=== PATIENT | female | born 1960 | race Two or more races ===

== ENCOUNTER 2019-06-17 14:55 | Emergency (ER) | payer SELFPAY ==
[~2019-06-17] VITALS: Ht 165.1 cm; Wt 70.3 kg
[2019-06-17] MEDS ORDERED: ACETAMINOPHEN 500 MG TAB PO ONE (16:00)
[2019-06-17 16:16] VITALS: BP 137/84
== END 2019-06-17 20:10 | disposition left against medical advice (07) ==
LOC: ER 14:55
DX: J20.9 Acute bronchitis, unspecified (principal); F17.210 Nicotine dependence, cigarettes, uncomplicated
CPT/HCPCS: 71045; 87804